=== PATIENT | male | born 1950 | race Caucasian/White ===

== ENCOUNTER → 2016-11-24 | Outpatient (CLI) | payer BC ==
[~2016-11-24] MED LIST: MULT-974 PO; SIMV20TA3 PO
== END ==
LOC: PREOP 05:38
PROVIDERS: ATTEND Surgery
DX: Z01.818 Encounter for other preprocedural examination (principal); Z86.010 Personal history of colon polyps

== ENCOUNTER 2016-11-29 06:31 | Day surgery (SDC) | payer BC ==
[~2016-11-29] VITALS: Ht 170.2 cm; Wt 77.1 kg
[2016-11-29] MEDS ORDERED: NS IV 1000 ML 1,000 ML IV STA (06:54)
[2016-11-29] MEDS ORDERED: NS IV 1000 ML 1,000 ML ONE (07:01)
[2016-11-29 07:11] VITALS: BP 129/84
[2016-11-29] MEDS ORDERED: proPOfol 200 MG/20 ML (DIPRIVAN) VIAL IV ONE (07:11)
[2016-11-29] MEDS ORDERED: MIDAZOLAM 2 MG/2 ML (VERSED) VIAL ONE (07:12)
[2016-11-29] MEDS ORDERED: MULT-974 PO (07:21)
[2016-11-29] MEDS ORDERED: SIMV20TA3 PO (07:21)
--- NOTE | 2016-11-29 08:51 | Progress Note-Post Operative ---
Post-Operative Progess Note Surgeon (s)/Line Runner (s) Surgeon JESSI HAGEN DO Line Runner: 0 Pre-Operative Diagnosis history polyps, family history colon cancer Post-Operative Diagnosis colon polyps Post-Op Procedure Note Date of Procedure: Nov 29, 2016 Name of Procedure Performed: colonoscopy c hot bx polypectomy x 3 Description of the Procedure: see note Findings of the Procedure see note Anesthesia Type per mda Estimated blood loss (mL): none Specimen(s) collected/removed ascending colon polyp x 2, descending colon polyp x 1 JESSI HAGEN DO Nov 29, 2016 08:51
[2016-11-29 08:55] VITALS: BP 117/73
--- NOTE | 2016-11-29 09:14 | Discharge Inst-Simple/Standard ---
Discharge Inst-Standard Patient Instructions/Follow Up Plan of Care/Instructions/FU: Follow up with Dr. Richardson in 2 weeks high fiber diet Activity as Tolerated: Yes Discharge Diet: Other Diet (high fiber diet) ASHLEY REINA APRN Nov 29, 2016 09:14
[2016-11-29 09:25] VITALS: BP 117/80
[2016-11-29 09:47] VITALS: BP 117/80
--- NOTE | 2016-11-29 10:12 | OPERATIVE REPORT ---
PROCEDURE PHYSICIAN: JESSI RICHARDSON DATE OF PROCEDURE: 11/29/2016 PREOPERATIVE DIAGNOSES: 1. History of colon polyps. 2. Family history of colon cancer. POSTOPERATIVE DIAGNOSIS: Colon polyps. PROCEDURE: Colonoscopy with hot list polypectomy x3. SURGEON: Dr. Richardson. ANESTHESIA: Per MDA. ESTIMATED BLOOD LOSS: None. COMPLICATIONS: None. INDICATIONS: The patient is 56-year-old male with history of colon polyps. He understands the risks and benefits of the procedure and wished to proceed with the procedure. Consent was signed on the chart. PROCEDURE: The patient was taken the endoscopy suite, placed left lateral recumbent position. Timeout was performed. Digital rectal exam was performed. There were no palpable polyps, masses, or ulcerations. The scope was inserted in the rectum, advanced all of the way to the cecum with minimal difficulty. Prep was adequate. The scope was then slowly retracted. There were no polyps, masses, or ulcerations within the cecum. Within the ascending colon, there were 2 small polyps which hot biopsy polypectomy was performed. The scope was continued to be slowly retracted back. There were no polyps, masses, or ulcerations within the transverse colon. Within the descending colon, a small polyp was present which hot biopsy polypectomy was performed. The scope was continued to be slowly retracted back to the sigmoid colon, which had a small amount of diverticulosis. The scope was continued to be retracted back to the rectum where it was also retroflexed noting no other pathology. The scope was returned to its normal position and slowly withdrawn until completely removed noting no other pathology. RECOMMENDATIONS: The patient will need a repeat colonoscopy in 3 years to reevaluate for colon polyps. Would recommend high-fiber diet. If he has any problems prior to that, he should be reevaluated at that time. Job ID: [id number] Dictated Date: 11/29/2016 08:53:04 Supervisor Cloth Winding Date: 11/29/2016 10:07:53 / tbk
== END 2016-11-29 09:47 | disposition home or self-care (01) ==
LOC: ENDO 06:31
PROVIDERS: ATTEND Surgery
DX: Z12.11 Encounter for screening for malignant neoplasm of colon (principal); D12.2 Benign neoplasm of ascending colon; D12.4 Benign neoplasm of descending colon; K63.5 Polyp of colon; Z80.0 Family history of malignant neoplasm of digestive organs
CPT/HCPCS: 88305

== ENCOUNTER → 2017-09-19 | Outpatient (CLI) | payer MEDICARE, OTHER ==
--- NOTE | 2017-09-19 09:23 | Diagnostic Imaging Report ---
PROCEDURE: CT sinuses without contrast TECHNIQUE: Multiple contiguous axial images were obtained through the sinuses without the use of intravenous contrast. Coronal and sagittal reformations were then performed. INDICATION: Chronic sinusitis. COMPARISON: None. FINDINGS: Moderate to advanced mucosal thickening throughout the paranasal sinuses, greatest in the left maxillary sinus. The right maxillary sinus is relatively spared. Postoperative findings of ethmoidectomies and right middle turbinectomy. No large ben bullosa. No large periapical lucencies about the maxillary dentition. The mastoids and middle ears are clear. Normal alignment of the temporomandibular joints. IMPRESSION: Advanced mucosal thickening throughout the paranasal sinuses greatest in the left maxillary sinus. Dictated by: Dictated on workstation # [id number]
== END ==
LOC: RAD 08:38
PROVIDERS: ATTEND Internal Medicine
DX: J32.0 Chronic maxillary sinusitis (principal)
CPT/HCPCS: 70486

== ENCOUNTER → 2018-05-08 | Outpatient (CLI) | payer MEDICARE, OTHER ==
[~2018-05-08] MED LIST changes: +IOHEXOL 350 MG/ML 100 ML (OMNIPAQUE 350) VIAL IV ONE; +NS 250 ML (IVPB) BAG IV ONE
[2018-05-08 08:39] LABS: BASOPHILS % (AUTO) 1 % (0-10); EOSINOPHILS # (AUTO) 0.2 10^3/uL (0.0-0.3); EOSINOPHILS % (AUTO) 4 % (0-10); HEMATOCRIT 41 % (40-54); LYMPHOCYTES # (AUTO) 0.9 X 10^3 (1.0-4.0); LYMPHOCYTES % (AUTO) 19 % (12-44); MEAN CORPUSCULAR HEMOGLOBIN 29 PG (25-34); MEAN CORPUSCULAR HGB CONC 34 G/DL (32-36); MEAN CORPUSCULAR VOLUME 85 FL (80-99); MEAN PLATELET VOLUME 10.4 FL (7.4-10.4); MONOCYTES # (AUTO) 0.4 X 10^3 (0.0-1.0); MONOCYTES % (AUTO) 9 % (0-12); NEUTROPHILS # (AUTO) 3.2 X 10^3 (1.8-7.8); NEUTROPHILS % (AUTO) 67 % (42-75); PLATELET COUNT 168 10^3/uL (130-400); RED BLOOD COUNT 4.81 10^6/uL (4.35-5.85); RED CELL DISTRIBUTION WIDTH 13.9 % (10.0-14.5); WHITE BLOOD COUNT 4.7 10^3/uL (4.3-11.0)
[2018-05-08 08:46] LABS: BILIRUBIN,URINE NEGATIVE (NEGATIVE); CLARITY,URINE CLEAR; COLOR,URINE YELLOW; GLUCOSE, URINE (UA) NEGATIVE (NEGATIVE); KETONES,URINE NEGATIVE (NEGATIVE); LEUKOCYTE ESTERASE ,URINE NEGATIVE (NEGATIVE); NITRITE,URINE NEGATIVE (NEGATIVE); PH,URINE 7 (5-9); PROTEIN,URINE 1+ (NEGATIVE); UROBILINOGEN,URINE NORMAL (NORMAL)
[2018-05-08 08:54] LABS: BACTERIA,URINE FEW /HPF; SQUAMOUS EPITHELIAL CELL,UR RARE /HPF; WBC,URINE RARE /HPF
[2018-05-08 09:00] LABS: ALANINE AMINOTRANSFERASE 24 U/L (0-55); ALBUMIN 4.1 GM/DL (3.2-4.5); ALKALINE PHOSPHATASE 95 U/L (40-136); AMYLASE 64 U/L (25-125); BILIRUBIN,TOTAL 0.8 MG/DL (0.1-1.0); BUN/CREATININE RATIO 13; CALCIUM 9.1 MG/DL (8.5-10.1); CARBON DIOXIDE 23 MMOL/L (21-32); CHLORIDE 108 MMOL/L (98-107); CREATININE SERUM 0.93 MG/DL (0.60-1.30); GFR ESTIMATED > 60; GLUCOSE 96 MG/DL (70-105); LIPASE 30 U/L (8-78); POTASSIUM 4.2 MMOL/L (3.6-5.0); SODIUM 140 MMOL/L (135-145); TOTAL PROTEIN 6.6 GM/DL (6.4-8.2)
[2018-05-08 09:27] LABS: ERYTHROCYTE SEDIMENTATION RATE 7 MM/HR (0-30)
--- NOTE | 2018-05-08 10:02 | Diagnostic Imaging Report ---
PROCEDURE: CT abdomen and pelvis with contrast. TECHNIQUE: Multiple contiguous axial images were obtained through the abdomen and pelvis after administration of intravenous contrast. INDICATION: Abdominal pain, nausea, vomiting, bloating, difficulty swallowing. FINDINGS: There is a small retrocardiac hiatal hernia. Lung bases were clear. The liver, gallbladder, bile ducts, spleen, adrenals and pancreas were unremarkable. The unobstructed kidneys appeared within normal limits. There is no bowel obstruction. Noninflamed diverticula changes to the sigmoid colon without evidence for diverticulitis. Aortoiliac atherosclerotic disease without aneurysm dissection or substantial stenosis. There is no abdominal pelvic mesenteric or retroperitoneal adenopathy. There is no ascites, abscess, hematoma or fluid collection. There was no focal inflammatory process. IMPRESSION: No obstructive features, inflammatory process, mass or acute appearing abnormalities. Sigmoid diverticulosis and a small hiatal hernia with nonaneurysmal atherosclerosis noted. Dictated by: Dictated on workstation # [id number]
== END ==
LOC: RAD 08:22
PROVIDERS: ATTEND Internal Medicine
DX: K57.30 Diverticulosis of large intestine without perforation or abscess without bleeding (principal); K44.9 Diaphragmatic hernia without obstruction or gangrene; I70.0 Atherosclerosis of aorta; E11.65 Type 2 diabetes mellitus with hyperglycemia
CPT/HCPCS: 36415; 74177; 80053; 81000; 82150; 83690; 85025; 85652

== ENCOUNTER 2018-06-26 06:35 | Outpatient (CLI) | payer MEDICARE, OTHER ==
[~2018-06-26] VITALS: Ht 170.2 cm; Wt 77.1 kg
[~2018-06-26 06:35] MED LIST changes: -IOHEXOL 350 MG/ML 100 ML (OMNIPAQUE 350) VIAL IV ONE; -NS 250 ML (IVPB) BAG IV ONE
[2018-06-26] MEDS ORDERED: ALLO100T PO (13:49)
== END 2018-06-26 13:59 | disposition home or self-care (01) ==
LOC: PREOP 06:35
PROVIDERS: ATTEND Surgery
DX: Z01.818 Encounter for other preprocedural examination (principal)

== ENCOUNTER 2018-07-03 07:52 | Day surgery (SDC) | payer MEDICARE, OTHER ==
[~2018-07-03] VITALS: Ht 170.2 cm; Wt 77.1 kg
[~2018-07-03 07:52] MED LIST changes: +ALLO100T PO
[2018-07-03] MEDS ORDERED: LACTATED RINGERS 1,000 ML IV ONE (07:55)
[2018-07-03] MEDS ORDERED: LACTATED RINGERS 1,000 ML IV STA (08:01)
--- OUTSIDE RECORDS SUMMARY | 2018-07-03 08:09 | XMS REPORT | Continuity of Care Document ---
Author Author [facility] [employer]. Organization [facility]. Address Unknown Phone Unavailable Allergies Active Description Code Type Severity Reaction Onset Reported/Identified Relationship to Patient Clinical Status Yes PCN PCN Unknown N/ A 11/29/2016 Yes SULFA SULFA Unknown N/A 11/29/2016 Medications There is no data. Problems Date Dx Coded Attending Type Code Diagnosis Diagnosed By 06/04/2014 RADHA ARMENDARIZ APRN Ot 327.23 OBSTRUCTIVE SLEEP APNEA (ADULT) (PEDIATR 11/29/2016 JESSI HAGEN DO Ot D12.2 BENIGN NEOPLASM OF ASCENDING COLON 11/29/2016 JESSI HAGEN DO Ot D12.4 BENIGN NEOPLASM OF DESCENDING COLON 11/29/2016 JESSI HAGEN DO Ot K63.5 POLYP OF COLON 11/29/2016 JESSI HAGEN DO Ot Z12.11 ENCOUNTER FOR SCREENING FOR MALIGNANT NE 11/29/2016 JESSI HAGEN DO Ot Z80.0 FAMILY HISTORY OF MALIGNANT NEOPLASM OF 12/09/2016 JESSI HAGEN DO Ot D12.2 BENIGN NEOPLASM OF ASCENDING COLON 12/09/2016 JESSI HAGEN DO Ot D12.4 BENIGN NEOPLASM OF DESCENDING COLON 12/09/2016 JESSI HAGEN DO Ot K63.5 POLYP OF COLON 12/09/2016 JESSI HAGEN DO Ot Z12.11 ENCOUNTER FOR SCREENING FOR MALIGNANT NE 12/09/2016 JESSI HAGEN DO Ot Z80.0 FAMILY HISTORY OF MALIGNANT NEOPLASM OF 09/20/2017 CARIN BURNETT DO Ot J32.0 CHRONIC MAXILLARY SINUSITIS 10/16/2017 CARIN BURNETT DO Ot J32.0 CHRONIC MAXILLARY SINUSITIS 05/08/2018 JESSI HAGEN DO Ot Z01.818 ENCOUNTER FOR OTHER PREPROCEDURAL EXAMIN 05/08/2018 JESSI HAGEN DO Ot Z86.010 PERSONAL HISTORY OF COLONIC POLYPS 05/08/2018 CARIN BURNETT DO Ot J32.0 CHRONIC MAXILLARY SINUSITIS 05/09/2018 BURNETT DO, CARIN Ot E11.65 TYPE 2 DIABETES MELLITUS WITH HYPERGLYCE 05/09/2018 BURNETT DO, CARIN Ot I70.0 ATHEROSCLEROSIS OF AORTA 05/09/2018 BURNETT DO, CARIN Ot K44.9 DIAPHRAGMATIC HERNIA WITHOUT OBSTRUCTION 05/09/2018 BURNETT DO, CARIN Ot K57.30 DVRTCLOS OF LG INT W/O PERFORATION OR AB 05/29/2018 BURNETTCARIN VENCES DO Ot E11.65 TYPE 2 DIABETES MELLITUS WITH HYPERGLYCE 05/29/2018 BURNETT DO, CARIN Ot I70.0 ATHEROSCLEROSIS OF AORTA 05/29/2018 BURNETT DO, CARIN Ot K44.9 DIAPHRAGMATIC HERNIA WITHOUT OBSTRUCTION 05/29/2018 BURNETT DO, CARIN Ot K57.30 DVRTCLOS OF LG INT W/O PERFORATION OR AB 06/26/2018 JESSI HAGEN DO Ot Z01.818 ENCOUNTER FOR OTHER PREPROCEDURAL EXAMIN 06/28/2018 JESSI HAGEN DO Ot Z01.818 ENCOUNTER FOR OTHER PREPROCEDURAL EXAMIN Procedures There is no data. Results Test Result Range Complete blood count (CBC) with automated white blood cell (WBC) differential - 05/08/18 08:35 Blood leukocytes automated count (number/volume) 4.7 10*3/uL 4.3-11.0 Blood erythrocytes automated count (number/volume) 4.81 10*6/uL 4.35-5.85 Venous blood hemoglobin measurement (mass/volume) 14.0 g/dL 13.3-17.7 Blood hematocrit (volume fraction) 41 % 40-54 Automated erythrocyte mean corpuscular volume 85 [foz_us] 80-99 Automated erythrocyte mean corpuscular hemoglobin (mass per erythrocyte) 29 pg 25-34 Automated erythrocyte mean corpuscular hemoglobin concentration measurement ( mass/volume) 34 g/dL 32-36 Automated erythrocyte distribution width ratio 13.9 % 10.0-14.5 Automated blood platelet count (count/volume) 168 10*3/uL 130-400 Automated blood platelet mean volume measurement 10.4 [foz_us] 7.4-10.4 Automated blood neutrophils/100 leukocytes 67 % 42-75 Automated blood lymphocytes/100 leukocytes 19 % 12-44 Blood monocytes/100 leukocytes 9 % 0-12 Automated blood eosinophils/100 leukocytes 4 % 0-10 Automated blood basophils/100 leukocytes 1 % 0-10 Blood neutrophils automated count (number/volume) 3.2 10*3 1.8-7.8 Blood lymphocytes automated count (number/volume) 0.9 10*3 1.0-4.0 Blood monocytes automated count (number/volume) 0.4 10*3 0.0-1.0 Automated eosinophil count 0.2 10*3/uL 0.0-0.3 Automated blood basophil count (count/volume) 0.0 10*3/uL 0.0-0.1 Complete urinalysis with reflex to culture - 05/08/18 08:35 Urine color determination YELLOW NRG Urine clarity determination CLEAR NRG Urine pH measurement by test strip 7 5-9 Specific gravity of urine by test strip 1.010 1.016- 1.022 Urine protein assay by test strip, semi-quantitative 1+ NEGATIVE Urine glucose detection by automated test strip NEGATIVE NEGATIVE Erythrocytes detection in urine sediment by light microscopy NEGATIVE NEGATIVE Urine ketones detection by automated test strip NEGATIVE NEGATIVE Urine nitrite detection by test strip NEGATIVE NEGATIVE Urine total bilirubin detection by test strip NEGATIVE NEGATIVE Urine urobilinogen measurement by automated test strip (mass/volume) NORMAL NORMAL Urine leukocyte esterase detection by dipstick NEGATIVE NEGATIVE Automated urine sediment erythrocyte count by microscopy (number/high power field) NONE NRG Automated urine sediment leukocyte count by microscopy (number/high power field ) RARE NRG Bacteria detection in urine sediment by light microscopy FEW NRG Squamous epithelial cells detection in urine sediment by light microscopy RARE NRG Crystals detection in urine sediment by light microscopy NONE NRG Casts detection in urine sediment by light microscopy NONE NRG Mucus detection in urine sediment by light microscopy SMALL NRG Complete urinalysis with reflex to culture NO NRG Comprehensive metabolic panel - 05/08/18 08:35 Serum or plasma sodium measurement (moles/volume) 140 mmol/L 135-145 Serum or plasma potassium measurement (moles/volume) 4.2 mmol/L 3.6-5.0 Serum or plasma chloride measurement (moles/volume) 108 mmol/L 98-107 Carbon dioxide 23 mmol/L 21-32 Serum or plasma anion gap determination (moles/volume) 9 mmol/L 5-14 Serum or plasma urea nitrogen measurement (mass/volume) 12 mg/dL 7-18 Serum or plasma creatinine measurement (mass/volume) 0.93 mg/dL 0.60-1.30 Serum or plasma urea nitrogen/creatinine mass ratio 13 NRG Serum or plasma creatinine measurement with calculation of estimated glomerular filtration rate > NRG Serum or plasma glucose measurement (mass/volume) 96 mg/dL 70-105 Serum or plasma calcium measurement (mass/volume) 9.1 mg/dL 8.5-10.1 Serum or plasma total bilirubin measurement (mass/volume) 0.8 mg/dL 0.1-1.0 Serum or plasma alkaline phosphatase measurement (enzymatic activity/volume) 95 U/L 40-136 Serum or plasma aspartate aminotransferase measurement (enzymatic activity/ volume) 23 U/L 5-34 Serum or plasma alanine aminotransferase measurement (enzymatic activity/volume ) 24 U/L 0-55 Serum or plasma protein measurement (mass/volume) 6.6 g/dL 6.4-8.2 Serum or plasma albumin measurement (mass/volume) 4.1 g/dL 3.2-4.5 CALCIUM CORRECTED 9.0 mg/dL 8.5-10.1 Serum or plasma amylase measurement (enzymatic activity/volume) - 05/08/18 08: 35 Serum or plasma amylase measurement (enzymatic activity/volume) 64 U /L 25-125 Lipase - 05/08/18 08:35 Lipase 30 U/L 8-78 Erythrocyte sedimentation rate by westergren method - 05/08/18 08:35 Erythrocyte sedimentation rate by westergren method 7 mm 0-30 Encounters ACCT No. Visit Date/Time Discharge Status Pt. Type Provider Facility Loc./Unit Complaint [id number] 05/17/2013 12:05:00 05/17/2013 13:00:00 DIS Emergency [id number] 06/26/2018 06:35:00 06/26/2018 13:59:00 DIS Outpatient JESSI HAGEN DO [facility] PREOP EGD [id number] 05/08/2018 08:22:00 05/08/2018 23:59:59 CLS Outpatient CARIN BURNETT DO [facility] RAD UNSPECIFIED ABD PAIN R10.9 [id number] 09/19/2017 08:38:00 09/19/2017 23:59:59 CLS Outpatient CARIN BURNETT DO [facility] RAD CHRONIC MAXILLARY SINUSITIS [id number] 11/29/2016 06:31:00 11/29/2016 09:47:00 DIS Outpatient JESSI HAGEN DO [facility] ENDO HISTORY OF POLYPS [id number] 11/24/2016 05:38:00 11/24/2016 23:59:59 CLS Outpatient JESSI HAGEN DO [facility] PREOP HISTORY OF POLYPS [id number] 06/03/2014 20:50:00 06/04/2014 06:00:00 DIS Outpatient RADHA ARMENDARIZ APRN [facility] SLEEP SNORING,DAYTIME SLEEPINESS [id number] 07/03/2018 07:52:00 ACT Outpatient JESSI HAGEN DO [facility] ENDO DYSPHAGIA/REFLUX
[2018-07-03 08:15] VITALS: BP 133/77
[2018-07-03] MEDS ORDERED: HURRICAINE EXT TUBE (BENZOCAINE) XX PRN (08:15)
[2018-07-03] MEDS ORDERED: MIDAZOLAM 2 MG/2 ML (VERSED) VIAL ONE (09:18)
[2018-07-03] MEDS ORDERED: PROPOFOL INJECTION 50 ML IV ONE (09:18)
--- NOTE | 2018-07-03 09:37 | Progress Note-Pre Operative ---
Pre-Operative Progress Note H&P Reviewed The H&P was reviewed, patient examined and no changes noted. Date Seen by Provider: Jul 03, 2018 Time Seen by Provider: 09:37 Date H&P Reviewed: Jul 03, 2018 Time H&P Reviewed: 09:37 Pre-Operative Diagnosis: dysphagia, gerd JESSI HAGEN DO Jul 03, 2018 09:37
[2018-07-03] MEDS ORDERED: PANT40TA2 PO (09:59)
[2018-07-03] MEDS ORDERED: SUCR1TAB36 PO (09:59)
--- NOTE | 2018-07-03 10:00 | Discharge Inst-Simple/Standard ---
Discharge Inst-Standard Discharge Medications New, Converted or Re-Newed RX: Transmitted to Pharmacy Patient Instructions/Follow Up Plan of Care/Instructions/FU: 2-3 weeks Debra Activity as Tolerated: Yes Discharge Diet: Regular Diet JESSI HAGEN DO Jul 03, 2018 10:00
--- NOTE | 2018-07-03 10:02 | Progress Note-Post Operative ---
Post-Operative Progess Note Surgeon (s)/Voip Technician (s) Surgeon JESSI HAGEN DO Voip Technician: na Pre-Operative Diagnosis dysphagia, gerd Post-Operative Diagnosis small hiatal hernia gastric polyp duodenitis Procedure & Operative Findings Date of Procedure 07/03/18 Procedure Performed/Findings egd c biopsies and hot bx polypectomy Anesthesia Type per director of global marketing Estimated Blood Loss Estimated blood loss (mL): scant Specimens/Packing Specimens Removed duodenum, antrum, gastric polyp, ge junction JESSI HAGEN DO Jul 03, 2018 10:02
[2018-07-03 10:20] VITALS: BP 138/81
[2018-07-03] MEDS ORDERED: HURRICAINE EXT TUBE (BENZOCAINE) ONE (10:32)
[2018-07-03 10:50] VITALS: BP 129/83
[2018-07-03 10:55] VITALS: BP 129/83
--- NOTE | 2018-07-03 12:14 | Anesthesia-General Post-Op ---
MAC Patient Condition Mental Status/LOC: Same as Preop Cardiovascular: Satisfactory Nausea/Vomiting: Absent Respiratory: Satisfactory Pain: Controlled Complications: Absent Post Op Complications Complications None Follow Up Care/Instructions Patient Instructions None needed. Anesthesiology Discharge Order Discharge Order Patient is doing well, no complaints, stable vital signs, no apparent adverse anesthesia problems. No complications reported per nursing. ANN LARA CRNA Jul 03, 2018 12:14
--- NOTE | 2018-07-03 17:26 | OPERATIVE REPORT ---
DATE OF SERVICE: 07/03/2018 PREOPERATIVE DIAGNOSES: Dysphagia and gastroesophageal reflux disease. POSTOPERATIVE DIAGNOSES: Small hiatal hernia, gastric polyp, duodenitis, and reflux esophagitis. PROCEDURE PERFORMED: Esophagogastroduodenoscopy with biopsies and hot biopsy polypectomy. ANESTHESIA: Per CIGAR MAKER. SURGEON: Jessi Richardson DO. ESTIMATED BLOOD LOSS: Scant. COMPLICATIONS: None. INDICATIONS: The patient is a 68-year-old male with dysphagia and reflux symptoms. He understands risks and benefits of procedure and wished to proceed with procedure. Consent was signed in the chart. DESCRIPTION OF PROCEDURE: The patient was taken to the endoscopy suite, placed in left lateral recumbent position. Timeout was performed. Scope was inserted into mouth, down the esophagus, stomach and into the duodenum without difficulty. There were no polyps, mass or ulcerations within the second portion of the duodenum. The first portion of the duodenum has some erythematous changes consistent with duodenitis. A biopsy was obtained. Scope was slowly retracted back into the stomach where it was further insufflated. There were just slight erythematous changes. No polyps, masses or ulcerations within the antrum. Biopsy of the antrum was obtained. Scope was retroflexed and there was a smaller gastric polyp present, which hot biopsy polypectomy was performed. This was in the cardia portion. Scope was returned to its normal position noting no other pathology. There was a small hiatal hernia noted as well. Scope was returned to its normal position and slowly withdrawn to the distal esophagus. At the GE junction, there are some erythematous changes consistent with reflux esophagitis. Biopsies were obtained. Scope was then slowly retracted back until completely removed. The patient tolerated the procedure well without any complications and taken to recovery room in stable condition. RECOMMENDATIONS: The patient is to follow up in the office in two to three weeks to discuss pathology results. We will also start him on Protonix and Carafate to see how he is doing with that and how his symptoms are doing. Job ID: [id number] DocumentID: [id number] Dictated Date: 07/03/2018 10:04:57 Real Estate Paralegal Date: 07/03/2018 17:25:34 Dictated By: JESSI RICHARDSON DO
== END 2018-07-03 10:55 | disposition home or self-care (01) ==
LOC: ENDO 07:52
PROVIDERS: ATTEND Surgery
DX: K21.0 Gastro-esophageal reflux disease with esophagitis (principal); K44.9 Diaphragmatic hernia without obstruction or gangrene; K31.7 Polyp of stomach and duodenum; G47.33 Obstructive sleep apnea (adult) (pediatric); E78.5 Hyperlipidemia, unspecified; F17.200 Nicotine dependence, unspecified, uncomplicated; Z79.899 Other long term (current) drug therapy

== ENCOUNTER 2019-09-04 09:48 | Outpatient (CLI) | payer MEDICARE, OTHER ==
[~2019-09-04] VITALS: Ht 172 cm; Wt 83.1 kg
[~2019-09-04 09:48] MED LIST changes: +PANT40TA2 PO; +SIMV20TA26 PO; -SIMV20TA3 PO; +SUCR1TAB36 PO
[2019-09-04] MEDS ORDERED: IRON DEXTRAN 25 MG/NS 6.25 ML TOTAL VOLUME IV ONE ×3 (10:00)
[2019-09-04] MEDS ORDERED: IRON DEXTRAN 1,000 MG/NS 250 ML IVPB IV ONE ×2 (10:00)
[2019-09-04 10:18] VITALS: BP 141/85
== END 2019-09-04 12:03 | disposition home or self-care (01) ==
LOC: SDC 09:48
PROVIDERS: ATTEND Internal Medicine
DX: E61.1 Iron deficiency (principal)
CPT/HCPCS: 96365

== ENCOUNTER 2020-02-06 05:37 | Outpatient (RCR) | payer MEDICARE, OTHER ==
[~2020-02-06] VITALS: Ht 172 cm; Wt 77.2 kg
== END 2020-02-06 11:36 | disposition home or self-care (01) ==
LOC: PREOP 05:37
PROVIDERS: ATTEND Surgery
DX: Z01.812 Encounter for preprocedural laboratory examination (principal); Z20.828 Contact with and (suspected) exposure to other viral communicable diseases; Z86.010 Personal history of colon polyps
CPT/HCPCS: 87635

== ENCOUNTER 2020-02-11 08:49 | Day surgery (SDC) | payer MEDICARE, OTHER ==
[2020-02-11] VITALS (8 sets, daily range): BP systolic 135–147; BP diastolic 51–90
[~2020-02-11] VITALS: Ht 172 cm; Wt 77.2 kg
[2020-02-11] MEDS ORDERED: LACTATED RINGERS 1,000 ML IV ONE (08:55)
[2020-02-11] MEDS ORDERED: LACTATED RINGERS 1,000 ML IV PRN (09:00)
--- OUTSIDE RECORDS SUMMARY | 2020-02-11 09:33 | XMS REPORT ---
Author Author [employer] [facility] [employer] [facility] [employer] Address [address] [address] Care Team Providers Care Scarrer Name Role Phone Jazzmine Boone Unavailable NO, LOCAL PHYSICIAN Unavailable Unavailable CARIN BURNETT Unavailable CARIN BURNETT DO S Unavailable Unavailable DO CARIN BURNETT PCP DO CARIN BURNETT PCP Unavailable Unavailable Unavailable Unavailable Allergies The data below is from unstructured sources Allergy Name Reaction Description Start Date Severity Status Provider Allergies Unknown Medications Current Medications Medication Ingredient Drug Dose Dates Status Sig Sig Care Class(es) (Normalized) (Original) Provid er allopurinol Allopurinol Xanthine 100 mg Active no Allopurino l no 100 mg oral Oxidase information Active 100 name tablet (4 Inhibitor ORAL Daily sources.) Completed/Discontinued Medications Medication Ingredient Drug Dose Dates Status Sig Sig Care Class(es) (Normalized) (Original) Provid er no Multivitami no Complete take 1 Multivitamin (n o information n information d tablet by (Multi-Vit am phone) (2 (Multi-Aline mouth once in Daily) 1 sources.) min Daily) daily, then Each Tablet 1 Each take 1 1 Each ORAL Tablet tablet by Daily mouth pantoprazol pantoprazol Proton Pump 40 mg 07-03-20 Complete take 1 Pantoprazole Jessi e 40 mg e Inhibitor 18 d tablet by Sodium D delayed mouth once (Protonix) Hagen release daily 40 Mg (no oral tablet Tablet.dr 40 phone) (3 Mg ORAL sources.) Daily 30 Tab 07/03/18 07-03-2018 Active no Pantopra no name inform zole ation Sodium Active 40 ORAL Daily July 03, 2018 9:59am sucralfate Sucralfate Aluminum 1000 07-03-20 Complete take 1 S ucralfate Jessi 1000 mg Complex mg 18 d tablet by (Carafate) 1 D oral tablet mouth at Gm Tablet 1 Hagen (3 bedtime Gm ORAL (no sources.) Before Meals phone) And At Bedtime 120 Tab 07/03/18 07-03-2018 Completed no Sucralfa no name - inform te 02-04-2020 ation Disconti nued 1 ORAL Before Meals And At Bedtime 120 July 03, 2018 9:59am February 04, 2020 Problems Problem Normalized Date Last Normalized Normalized Provider Fa cility Classification Problem(s) Recorded Problem Problem Sta tus Duration 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 (2 sources.) Other and Benign Episodic Active JESSI HAGEN , Not Avai lable unspecified neoplasm of DO (57639) benign ascending neoplasm (3 colon sources.) Other and Benign Episodic Active JESSI HAGEN , Not Avai lable unspecified neoplasm of DO (25599) benign descending neoplasm (3 colon sources.) Other upper Chronic Chronic Active no name no informat ion respiratory maxillary infections (3 sinusitis sources.) Abdominal Diaphragmatic Episodic Active JESSI HAGEN , Not Available hernia (6 hernia without DO (01732) sources.) obstruction or gangrene Diverticulosis Diverticulosis Chronic Active no name no information and of large diverticulitis intestine (2 sources.) without perforation or abscess without bleeding Other Dysphagia Episodic Active CARIN BURNETT [facility] Translations: [address] [facility] al disorders [ Dysphagia] [place] (3 sources.) ([address]) Unclassified Encounter for Episodic Active JESSI HAGEN , Not Available (3 sources.) screening for DO (24693) malignant neoplasm of colon Unclassified Family history Episodic Active JESSI HAGEN , Not Available (3 sources.) of malignant DO (87540) neoplasm of digestive organs Esophageal Gastro-esophag Chronic Active JESSI XIAO , N ot Available disorders (4 eal reflux DO (73142) sources.) disease with esophagitis Nutritional Iron Episodic Active CARIN BURNETT , [facility] Vi a deficiencies deficiency DO Rosita (2 sources.) [facility] ([address]692) Substance-rela Nicotine Chronic Active JESSI HAGEN , Not Available petrona disorders dependence, DO (82637) (4 sources.) unspecified, uncomplicated Residual Obstructive Chronic Active JESSI HAGEN , Not A vailable codes; sleep apnea DO (21057) unclassified (adult) (4 sources.) (pediatric) Unclassified Obstructive Chronic Active no name no info rmation (2 sources.) sleep apnea (adult)(pediat talita) Other Other long Episodic Active JESSI HAGEN , Not Av ailable aftercare (4 term (current) DO (00403) sources.) drug therapy Other and Personal Episodic Active no name no informatio n unspecified history of benign colonic polyps neoplasm (2 sources.) Other and Polyp of colon Episodic Active JESSI HAGEN , No t Available unspecified DO (59278) benign neoplasm (3 sources.) Other and Polyp of Episodic Active JESSI HAGEN , Not Avai lable unspecified stomach and DO (47923) benign duodenum neoplasm (4 sources.) Esophageal Reflux Episodic Active CARIN LEX [facility] (1 [address] Hospital source.) [place] ([address]) Diabetes Type 2 Chronic Active no name no informatio n mellitus with diabetes complications mellitus with (2 sources.) hyperglycemia Procedures Procedure Normalized Procedure Procedure Result Performer Facility Date 07-03-2018 Administration of no information JESSI HAGEN Vi a [facility] anesthesia [place] ([address]) 07-03-2018 Esophagogastroduodenos no information JESSI TOVAR R Via [facility] copy [place] ([address]) Immunizations Normalized Immunization Date Notes Care Provider Facili ty Immunization vaccine no information CARIN BURNETT [address] [facility] Translations: [ [place] ([address]) vaccine] Results The data below is from unstructured sourcesNo Known Relevant Diagnostic Tests, Laboratory Data and/or Discharge Summary.No known relevant diagnostic tests, laboratory data and/or discharge summary.No known relevant diagnostic tests, laboratory data and/or discharge summary.No relevant diagnostic test, laboratory data and/or discharge summary information availab le.No relevant diagnostic test, laboratory data and/or discharge summary informa tion available.No relevant diagnostic test, laboratory data and/or discharge sum [place] information available.No relevant diagnostic test, laboratory data and/or d ischarge summary information available.No known relevant diagnostic tests and/or laboratory data.No known relevant diagnostic tests and/or laboratory data.No kn own relevant diagnostic tests and/or laboratory data.No known relevant diagnosti c tests and/or laboratory data. Vital Signs The data below is from unstructured sources Vital Reading Collection Date/Time Result Blood Pressure 05/17/13 11:57am 128/87 Ortho 05/17/13 11:57am S I Temperature 05/17/13 11:57am 98.7 Source 05/17/13 11:57am O Pulse 05/17/13 11:57am 6 4 SPO2 (%) 05/17/13 11:57am 96 Height(cm) 05/17/13 11:57am 170.2 Height(in) 05/17/13 11:57am 067 Weight(Kg) 05/17/13 11:57am 75.0 Weight(lbs) 05/17/13 11:57am 165.0 Vital Response Date/Time Height (Feet) 5 feet 12:19pm Height (Inches) 7.00 inches 06/26/2018 12:19pm Height (Calculated Centimeters) 170. 319527 cm 06/26/2018 12:19pm Weight (Pounds) 170 pounds 06/26/2018 12:19pm Weight (Ounces) 0.0 oz 1 08/26/2017 12:19pm Weight (Calculated Grams) 89317.70 gm 06/26/2018 12:19pm Weight (Calculated Kilograms) 77.110 704 kilograms 06/26/2018 12:19pm Calculated BMI 26.6 06/14 12:19pm Vital Response Date/Time Temperature (Fahrenheit) 97.0 degree s F (97.6 - 99.5) 07/03/2018 10:55am Temperature (Calculated Celsius) 36. 22855 degrees C (36.4 - 37.5) 07/03/2018 10:55am Temperature Source Temporal 07/03/2018 10:55am Pulse Rate (adult) 56 bpm (60 - 90) 07/03/2018 10:55am Respiratory Rate 16 bpm (12 - 24) 07/03/2018 10:55am O2 Sat by Pulse Oximetry 98 % (88 - 100) 07/03/2018 10:55am Blood Pressure 129/83 mm Hg 07/03/2018 10:55am Blood Pressure Mean 95 mm Hg (65 - 110) 07/03/2018 8:15am Pain Numeric Pain Scale 0-No Pain 07/03/2018 10:55am Pain Intensity 0 2017 10:50am Height (Feet) 5 feet 8:20am Height (Inches) 7.00 inches 07/03/2018 8:20am Height (Calculated Centimeters) 170. 033631 cm 07/03/2018 8:20am Weight (Pounds) 170 pounds 07/03/2018 8:20am Weight (Ounces) 0.0 oz 1 09/02/2017 8:20am Weight (Calculated Grams) 81235.70 gm 07/03/2018 8:20am Weight (Calculated Kilograms) 77.110 704 kilograms 07/03/2018 8:20am Calculated BMI 26.6 06/15 8:20am Vital Reading Result Col lection Date/Time Vital Reading Result Col lection Date/Time Interventions No Information Plan of Treatment Normalized Care Care Detail Care Activity Date Care Provider F acility Activity Coronavirus Ab Qn no information no information DO CARIN BURNETT [employer] ([place]) [id number] (Work Phone: [facility] ) ([address]) Patient referral no information no information DO CARIN BURNETT [facility] [address] [address] [facility] ([address]) Goals Patient Goal Desired Goal no information no information Social History Normalized Code Original Code Date Value no information no information 07-03-2018 No no information no information 07-03-2018 Cigarettes Sex Assigned At Sex Assigned At no information M pito Tobacco smoking status Tobacco smoking status no information Ex-smoker (finding) ALIS ALIS no information no information 02-04-2020 Occasionally Us es no information no information 02-04-2020 Former Smoker Functional Status The data below is from unstructured sourcesNo functional status results.No functional status information available.No functional status information available.No functional status information available.No functional status information available.No Functional Status information availableNo Functional Status information availableNo Functional Status information av ailableNo Functional Status information available Mental Status The data below is from unstructured sourcesNo Mental Status Information AvailableNo Mental Status Information AvailableNo Mental Status Information Available Encounters Encounter Normalized Encounter Encounter Diagnosis Care Provi ramón Organization Date Type 07-03-2018 Admission to day no information JESSI HAGEN Work no organization name surgery 02-06-2020 Discharged Recurring no information (no phone) [facility] (no phone) 02-06-2020 06-26-2018 Patient encounter no information JESSI HAGEN Wor k no organization name - 06-26-2018 JESSI HAGEN 05-08-2018 Patient encounter no information no name no or ganization name 09-19-2017 Patient encounter no information no name no or ganization name 11-29-2016 Patient encounter no information no name no or ganization name - 11-29-2016 11-24-2016 Patient encounter no information no name no or ganization name 06-03-2014 Patient encounter no information no name no or ganization name - 06-04-2014 09-04-2019 Patient encounter no information (no phone) Brendan ruiz [facility] (no phone) 09-04-2019 09-04-2019 Patient encounter no information CARIN Jaquelin BURNETT (no [facility] phone) [facility] 09-04-2019 (no phone) 07-03-2018 Patient encounter no information no name no or ganization name - procedure 07-03-2018 NEGATED no information Encounter for other no name no organization name preprocedural examination Medical Equipment The data below is from unstructured sourcesNo Medical Equipment Information availableNo Medical Equipment Information availableNo Medical Equipment Information available Payers Normalized Payer Value Unknown [id number]) Unknown [id number] ([id number]) Unknown no information ([id number]) Medicare [id number] ([id number]) Medicare no information ([id number]) Evaluation note Note Type Note Facility Evaluation No Assessments Information Available A scension note [facility] ([id number]) Discharge Instructions No hospital discharge instructions.No hospital discharge instruction information available.No hospital discharge instruction information available. Advance Directives Directive Response Recor ded Date/Time Advance Directives No 1:47pm Health Care Power of Firearms Assembly Supervisor No 06/26/18 1:47pm Organ Donor Yes 06/26/18 1:47pm Resuscitation Status Full Code 06/26/18 1:47pm Directive Response Recor ded Date/Time Advance Directives No 8:13am Health Care Power of Firearms Assembly Supervisor No 07/03/18 8:13am Organ Donor Yes 07/03/18 8:13am Resuscitation Status Full Code 07/03/18 8:13am Advance Directive Response Recorded Date/Time Advance Directives No No 2017 8:13am Health Care Power of Firearms Assembly Supervisor No July 03, 2018 8:13am Organ Donor Yes July 03, 2018 8:13am Advance Directive Response Recorded Date/Time Advance Directives Yes J 2019 10:29am Health Care Power of Firearms Assembly Supervisor Yes February 04, 2020 10:29am Organ Donor Yes January 10:29am Resuscitation Status Full Code February 04, 2020 10:29am Additional Source Comments This clinical document has been generated using [employer] software that has been certified by the Office of the National Coordinator for Health Information Technology (ONC 15.99.04.3023.Diam.31.00.0.769925) and the National Committee for Battalion Chief (NCQA, as an eMeasure certified technology). FOR RECORDS PERTAINING TO PATIENTS WHO ARE OR HAVE BEEN ENROLLED IN A CHEMICAL D EPENDENCY/SUBSTANCE ABUSE PROGRAM, SOME INFORMATION MAY BE OMITTED. This clinica l summary was aggregated from multiple sources. Caution should be exercised in using it in the provision of clinical care. This summary normalizes information from multiple sources, and as a consequence, information in this document may ma terially change the coding, format and clinical context of patient data. In kathy tion, data may be omitted in some cases. CLINICAL DECISIONS SHOULD BE BASED ON T HE PRIMARY CLINICAL RECORDS. [employer] [place] provides no warranty or guara ntee of the accuracy or completeness of information in this document.The followi ng information is based on time limited clinical information
--- OUTSIDE RECORDS SUMMARY | 2020-02-11 09:34 | XMS REPORT | Continuity of Care Document ---
Author Organization Unknown Address Unknown Phone Unavailable Allergies Active Description Code Type Severity Reaction Onset Reported/Identified Relationship to Patient Clinical Status Yes PCN PCN Unknown N/A 11/29/2016 Yes SULFA SULFA Unknown N/A 11/29/2016 Yes Penicillins [id number] Drug Aller gy Unknown N/A 07/03/2018 Yes Sulfa (Sulfonamide Antibiotics) [id number] 0491 Drug Allergy Unknown N/A 018 Yes Penicillins [id number] Drug Aller gy Unknown FROM CHILDHOOD 02/04/2020 Yes Sulfa (Sulfonamide Antibiotics) [id number] 0491 Drug Allergy Unknown FROM CHILDHOOD 02/04/2020 Medications There is no data. Problems Date Dx Coded Attending Type Code Diagnosis Diagnosed By 07/13/1135 JESSI HAGEN DO Ot Z01.812 ENCOUNTER FOR PREPROCEDURAL LABORATORY E 07/13/1135 JESSI HAGEN DO Ot Z20.828 CONTACT W AND EXPOSURE TO OTH VIRAL COMM 07/13/1135 JESSI HAGEN DO Ot Z86.010 PERSONAL HISTORY OF COLONIC POLYPS 06/04/2014 RADHA ARMEDNARIZ APRN Ot 327.23 OBSTRUCTIVE SLEEP APNEA (ADULT) (PEDIATR 11/29/2016 JESSI HAGEN DO Ot D12. 2 BENIGN NEOPLASM OF ASCENDING COLON 11/29/2016 JESSI HAGEN DO Ot D12. 4 BENIGN NEOPLASM OF DESCENDING COLON 11/29/2016 JESSI HAGEN DO Ot K63. 5 POLYP OF COLON 11/29/2016 JESSI HAGEN DO Ot Z12. 11 ENCOUNTER FOR SCREENING FOR MALIGNANT NE 11/29/2016 JESSI HAGEN DO Ot Z80. 0 FAMILY HISTORY OF MALIGNANT NEOPLASM OF 12/09/2016 JESSI HAGEN DO Ot D12. 2 BENIGN NEOPLASM OF ASCENDING COLON 12/09/2016 JESSI HAGEN DO Ot D12. 4 BENIGN NEOPLASM OF DESCENDING COLON 12/09/2016 JESSI HAGEN DO Ot K63. 5 POLYP OF COLON 12/09/2016 JESSI HAGEN DO Ot Z12. 11 ENCOUNTER FOR SCREENING FOR MALIGNANT NE 12/09/2016 JESSI HAGEN DO Ot Z80. 0 FAMILY HISTORY OF MALIGNANT NEOPLASM OF 09/20/2017 CARIN BURNETT DO Ot J32.0 CHRONIC MAXILLARY SINUSITIS 10/16/2017 CARIN BURNETT DO Ot J32.0 CHRONIC MAXILLARY SINUSITIS 05/08/2018 JESSI HAGEN DO Ot Z01.818 ENCOUNTER FOR OTHER PREPROCEDURAL EXAMIN 05/08/2018 JESSI HAGEN DO Ot Z86.010 PERSONAL HISTORY OF COLONIC POLYPS 05/08/2018 CARIN BURNETT DO Ot J32.0 CHRONIC MAXILLARY SINUSITIS 05/09/2018 CARIN BURNETT DO Ot E11.65 TYPE 2 DIABETES MELLITUS WITH HYPERGLYCE 05/09/2018 LEX COUCH CARIN Ot I70.0 ATHEROSCLEROSIS OF AORTA 05/09/2018 NI BURNETT DOI Ot K44.9 DIAPHRAGMATIC HERNIA WITHOUT OBSTRUCTION 05/09/2018 CARIN BURNETT DO Ot K57.30 DVRTCLOS OF LG INT W/O PERFORATION OR AB 05/29/2018 CARIN BURNETT DO Ot E11.65 TYPE 2 DIABETES MELLITUS WITH HYPERGLYCE 05/29/2018 CARIN BURNETT DO Ot I70.0 ATHEROSCLEROSIS OF AORTA 05/29/2018 CARIN BURNETT DO Ot K44.9 DIAPHRAGMATIC HERNIA WITHOUT OBSTRUCTION 05/29/2018 NI BURNETT DOI Ot K57.30 DVRTCLOS OF LG INT W/O PERFORATION OR AB 06/26/2018 JESSI HAGEN DO Ot Z01.818 ENCOUNTER FOR OTHER PREPROCEDURAL EXAMIN 06/28/2018 JESSI HAGEN DO Ot Z01.818 ENCOUNTER FOR OTHER PREPROCEDURAL EXAMIN 07/03/2018 JESSI HAGEN DO Ot E78. 5 HYPERLIPIDEMIA, UNSPECIFIED 07/03/2018 JESSI HAGEN DO Ot F17.200 NICOTINE DEPENDENCE, UNSPECIFIED, UNCOMP 07/03/2018 JESSI HAGEN DO Ot G47. 33 OBSTRUCTIVE SLEEP APNEA (ADULT) (PEDIATR 07/03/2018 JESSI HAGEN DO Ot K21. 0 GASTRO-ESOPHAGEAL REFLUX DISEASE WITH ES 07/03/2018 HAGEN DO, JESSI D Ot K31. 7 POLYP OF STOMACH AND DUODENUM 07/03/2018 HAGEN DO, JESSI D Ot K44. 9 DIAPHRAGMATIC HERNIA WITHOUT OBSTRUCTION 07/03/2018 HAGEN DO, JESSI D Ot Z79.899 OTHER TELEMETRY TECH (CURRENT) DRUG THERAPY 07/04/2018 HAGEN DO, JESSI D Ot E78. 5 HYPERLIPIDEMIA, UNSPECIFIED 07/04/2018 HAGEN DO, JESSI D Ot F17.200 NICOTINE DEPENDENCE, UNSPECIFIED, UNCOMP 07/04/2018 HAGEN DO, JESSI D Ot G47. 33 OBSTRUCTIVE SLEEP APNEA (ADULT) (PEDIATR 07/04/2018 HAGEN DO, JESSI D Ot K21. 0 GASTRO-ESOPHAGEAL REFLUX DISEASE WITH ES 07/04/2018 HAGEN DO, JESSI D Ot K31. 7 POLYP OF STOMACH AND DUODENUM 07/04/2018 HAGEN DO, JESSI D Ot K44. 9 DIAPHRAGMATIC HERNIA WITHOUT OBSTRUCTION 07/04/2018 HAGEN DO, JESSI D Ot Z79.899 OTHER USP (CURRENT) DRUG THERAPY 07/04/2018 HAGEN DO, JESSI D Ot E78. 5 HYPERLIPIDEMIA, UNSPECIFIED 07/04/2018 HAGEN DO, JESSI D Ot F17.200 NICOTINE DEPENDENCE, UNSPECIFIED, UNCOMP 07/04/2018 HAGEN DO, JESSI D Ot G47. 33 OBSTRUCTIVE SLEEP APNEA (ADULT) (PEDIATR 07/04/2018 HAGEN DO, JESSI D Ot K21. 0 GASTRO-ESOPHAGEAL REFLUX DISEASE WITH ES 07/04/2018 HAGEN DO, JESSI D Ot K31. 7 POLYP OF STOMACH AND DUODENUM 07/04/2018 HAGEN DO, JESSI D Ot K44. 9 DIAPHRAGMATIC HERNIA WITHOUT OBSTRUCTION 07/04/2018 HAGEN DO, JESSI D Ot Z79.899 OTHER TELEMETRY TECH (CURRENT) DRUG THERAPY 09/04/2019 BURNETT DO, CARIN Ot E61.1 IRON DEFICIENCY 09/06/2019 CARIN BURNETT DO Ot E61.1 IRON DEFICIENCY Procedures There is no data. Results Test Result Range Complete blood count (CBC) with automate d white blood cell (WBC) differential - 05/08/18 08:35 Blood leukocytes automated count (number/volume) 4.7 10*3/uL 4.3-11.0 Blood erythrocytes automated count (number/volume) 4.81 10*6/uL 4.35-5.85 Venous blood hemoglobin measurement (mass/volume) 14.0 g/dL 13.3-17.7 Blood hematocrit (volume fraction) 41 % 40-54 Automated erythrocyte mean corpuscular volume 85 [ foz_us] 80-99 Automated erythrocyte mean corpuscular h emoglobin (mass per erythrocyte) 29 pg 25-34 Automated erythrocyte mean corpuscular h emoglobin concentration measurement (mass/volume) 34 g/dL 32-36 Automated erythrocyte distribution width ratio 13. 9 % 10.0- 14.5 Automated blood platelet count (count/volume) 168 10*3/uL [...] 10*3 1.0-4.0 Blood monocytes automated count (number/volume) 0. 4 10*3 0.0-1.0 Automated eosinophil count 0.2 10*3/uL 0 .0-0.3 Automated blood basophil count (count/volume) 0.0 10*3/uL 0.0-0.1 Complete urinalysis with reflex to cultu re - 05/08/18 08:35 Urine color determination YELLOW NRG Urine clarity determination CLEAR NR G Urine pH measurement by test strip 7 5-9 Specific gravity of urine by test strip 1.010 1.016-1.022 Urine protein assay by test strip, semi-quantitative 1+ NEGATIVE Urine glucose detection by automated test strip NE GATIVE NEGATIVE Erythrocytes detection in urine sediment by light micr oscopy NEGATIVE NEGATIVE Urine ketones detection by automated test strip NE GATIVE NEGATIVE Urine nitrite detection by test strip NEGATIVE NEGATIVE Urine total bilirubin detection by test strip NEGA TIVE NEGATIVE Urine urobilinogen measurement by automated test strip (mass/volume) NORMAL NORMAL Urine leukocyte esterase detection by dipstick NEG ATIVE NEGATIVE Automated urine sediment erythrocyte cou nt by microscopy (number/high power field) NONE NRG Automated urine sediment leukocyte count by microscopy (number/high power field) RARE NRG Bacteria detection in urine sediment by light microsco py FEW NRG Squamous epithelial cells detection in u rine sediment by light microscopy RARE NRG Crystals detection in urine sediment by light microsco py NONE NRG Casts detection in urine sediment [...] 5-14 Serum or plasma urea nitrogen measurement (mass/volume ) 12 mg/dL 7-18 Serum or plasma creatinine measurement (mass/volume) 0.93 mg/dL 0.60-1.30 Serum or plasma urea nitrogen/creatinine mass ratio 13 NRG Serum or plasma creatinine measurement w ith calculation of estimated glomerular filtration rate > NRG Serum or plasma glucose measurement (mass/volume) 96 mg/dL 70-105 Serum or plasma calcium measurement (mass/volume) 9.1 mg/dL 8.5-10.1 Serum or plasma total bilirubin measurement (mass/volu me) 0.8 mg/dL 0.1-1.0 Serum or plasma alkaline phosphatase ema surement (enzymatic activity/volume) 95 U/L 40-136 Serum or plasma aspartate aminotransfera se measurement (enzymatic activity/volume) 23 U/L 5-34 Serum or plasma alanine aminotransferase measurement (enzymatic activity/volume) 24 U/L 0-55 Serum or plasma protein measurement (mass/volume) 6.6 g/dL 6.4-8.2 Serum or plasma albumin measurement (mass/volume) 4.1 g/dL 3.2-4.5 CALCIUM CORRECTED 9.0 mg/dL 8.5-10.1 Serum or plasma amylase measurement (enz ymatic activity/volume) - 05/08/18 08:35 Serum or plasma amylase measurement (enzymatic activit y/volume) 64 U/L 25-125 Lipase - 05/08/18 08:35 Lipase 30 U/L 8-78 Erythrocyte sedimentation rate by hussein gren method - 05/08/18 08:35 Erythrocyte sedimentation rate by westergren method 7 mm 0- 30 Coronavirus SARS-CoV-2 SO 2018 - 0 07:50 Coronavirus Ab [Units/volume] in Serum Negative Negative Encounters ACCT No. Visit Date/Time Discharge Status Pt. Type Provider Facility Loc./Unit Complaint [id number] 02/03/2020 13:20:00 02/03/2020 23:59: 59 [facility] [id number] 02/06/2020 05:37:00 020 11:36:00 DIS Outpatient JESSI HAGEN DO [facility] PREOP COLONOSCOPY [id number] 09/04/2019 09:48:00 020 12:03:00 DIS Outpatient CARIN BURNETT DO [facility] SDC SEVERE IRON DEFICIENCY [id number] 07/03/2018 07:52:00 018 10:55:00 DIS Outpatient JESSI HAGEN DO [facility] ENDO DYSPHAGIA/REFLUX [id number] 06/26/2018 06:35:00 018 13:59:00 DIS Outpatient JESSI HAGEN DO [facility] PREOP EGD [id number] 05/08/2018 08:22:00 018 23:59:59 CLS Outpatient CARIN BURNETT DO [facility] RAD UNSPECIFIED ABD PAIN R1 0.9 [id number] 09/19/2017 08:38:00 018 23:59:59 CLS Outpatient CARIN BURNETT DO [facility] RAD CHRONIC MAXILLARY SINUS ITIS [id number] 11/29/2016 06:31:00 017 09:47:00 DIS Outpatient JESSI HAGEN DO [facility] ENDO HISTORY OF POLYPS [id number] 11/24/2016 05:38:00 017 23:59:59 CLS Outpatient JESSI HAGEN DO [facility] PREOP HISTORY OF POLYPS [id number] 06/03/2014 20:50:00 014 06:00:00 DIS Outpatient RADHA ARMENDARIZ APRN [facility] SLEEP SNORING,DAYTIME SLEEPI NESS [id number] 02/11/2020 13:30:00 P EN Preadmit JESSI HAGEN DO [facility] ENDO SCREENING/HX POLYPS [id number] 05/17/2013 12:05:00 3 13:00:00 DIS Emergency
[2020-02-11] MEDS ORDERED: proPOfol 200 MG/20 ML (DIPRIVAN) VIAL IV ONE (09:37)
[2020-02-11] MEDS ORDERED: MIDAZOLAM 2 MG/2 ML (VERSED) VIAL ONE (09:37)
--- NOTE | 2020-02-11 09:40 | Progress Note-Pre Operative ---
Pre-Operative Progress Note H&P Reviewed The H&P was reviewed, patient examined and no changes noted. Date Seen by Provider: Feb 11, 2020 Time Seen by Provider: :40 Date H&P Reviewed: Feb 11, 2020 Time H&P Reviewed: 09:40 Pre-Operative Diagnosis: hx polyps JESSI HAGEN DO Feb 11, 2020 09:40
--- NOTE | 2020-02-11 10:20 | Progress Note-Post Operative ---
Post-Operative Progess Note Surgeon (s)/Lubricating Specialist (s) Surgeon JESSI HAGEN DO Lubricating Specialist: na Pre-Operative Diagnosis hx polyps Post-Operative Diagnosis colon polyps diverticulosis Procedure & Operative Findings Date of Procedure 02/11/20 Procedure Performed/Findings colonoscopy c hot bx polypectomy x 4 Anesthesia Type per manager analysis Estimated Blood Loss Estimated blood loss (mL): none Specimens/Packing Specimens Removed ascending, transverse x 2, sigmoid polyp JESSI HAGEN DO Feb 11, 2020 10:20
--- NOTE | 2020-02-11 10:21 | Discharge Inst-Simple/Standard ---
Discharge Inst-Standard Patient Instructions/Follow Up Plan of Care/Instructions/FU: 2 weeks kal Activity as Tolerated: Yes Discharge Diet: Regular Diet JESSI HAGEN DO Feb 11, 2020 10:21
--- NOTE | 2020-02-11 11:04 | Anesthesia-General Post-Op ---
MAC Patient Condition Mental Status/LOC: Same as Preop Cardiovascular: Satisfactory Nausea/Vomiting: Absent Respiratory: Satisfactory Pain: Controlled Complications: Absent Post Op Complications Complications None Follow Up Care/Instructions Patient Instructions None needed. Anesthesiology Discharge Order Discharge Order Patient is doing well, no complaints, stable vital signs, no apparent adverse anesthesia problems. AMANDA HOLGUIN DO Feb 11, 2020 11:04
--- NOTE | 2020-02-11 15:28 | OPERATIVE REPORT ---
DATE OF SERVICE: 02/11/2020 PREOPERATIVE DIAGNOSIS: History of colon polyps. POSTOPERATIVE DIAGNOSES: Colon polyps and diverticulosis. PROCEDURE: Colonoscopy with hot biopsy polypectomy x4 SURGEON: Jessi Richardson DO ANESTHESIA: Per DICTATING TRANSCRIBING MACHINE SERVICER. ESTIMATED BLOOD LOSS: None. COMPLICATIONS: None. INDICATIONS: The patient is a 69-year-old male with history of colon polyps. He understands risks and benefits of procedure, wishes to proceed with procedure. Consent was signed in the chart. DESCRIPTION OF PROCEDURE: The patient was taken to the endoscopy suite, placed in left lateral recumbent position. Timeout was performed. Digital rectal exam was performed. No palpable polyps, masses or ulcerations. Scope was inserted in the rectum, advanced all the way to cecum with minimal difficulty. Prep was adequate. Scope was then slowly retracted back. No polyps, masses or ulcerations within the cecum. A small polyp in the ascending colon, which hot biopsy polypectomy was performed. Scope was then continuously retracted back and in the transverse colon were 2 small polyps were present, which hot biopsy polypectomy was performed. Scope was then continuously retracted back. No other polyps, masses or ulcerations within the remainder of the transverse, descending colon, and in the sigmoid another small polyp was present, hot biopsy polypectomy was performed. A minimal amount of diverticulosis present. Scope was continued to be retracted back into the rectum, where it was also retroflexed noting no other pathology. Scope was then returned to its normal position, slowly withdrawn until completely removed. The patient tolerated procedure well without any complications. He was taken to recovery room in stable condition. RECOMMENDATIONS: The patient will need repeat colonoscopy in 3 years. Any issues before that be seen at that time. Recommend high fiber diet. The patient will follow up in 2 weeks in the office. Job ID: [id number] DocumentID: [id number] Dictated Date: 02/11/2020 10:27:35 Audiology Director Date: 02/11/2020 15:27:53 Dictated By: JESSI RICHARDSON DO
== END 2020-02-11 11:05 | disposition home or self-care (01) ==
LOC: ENDO 08:49
PROVIDERS: ATTEND Surgery
DX: Z12.11 Encounter for screening for malignant neoplasm of colon (principal); K63.5 Polyp of colon; D12.2 Benign neoplasm of ascending colon; D12.3 Benign neoplasm of transverse colon; D12.5 Benign neoplasm of sigmoid colon; K57.30 Diverticulosis of large intestine without perforation or abscess without bleeding; K21.9 Gastro-esophageal reflux disease without esophagitis; E78.5 Hyperlipidemia, unspecified; R56.9 Unspecified convulsions; F17.200 Nicotine dependence, unspecified, uncomplicated; G47.33 Obstructive sleep apnea (adult) (pediatric); J44.9 Chronic obstructive pulmonary disease, unspecified; Z86.010 Personal history of colon polyps; Z88.0 Allergy status to penicillin; Z88.2 Allergy status to sulfonamides; Z79.899 Other long term (current) drug therapy
CPT/HCPCS: 88305

== ENCOUNTER → 2021-03-08 | Outpatient (CLI) | payer MEDICARE, OTHER ==
--- NOTE | 2021-03-08 16:56 | Diagnostic Imaging Report ---
INDICATION: Right foot pain. COMPARISON: None. FINDINGS: Three views of the right foot demonstrate no acute fracture or dislocation. There are no focal osseous lesions. There is no soft tissue swelling. Joint spaces are well maintained. No radiopaque foreign bodies are seen. IMPRESSION: No acute fractures or dislocations of the right foot. Dictated by: Dictated on workstation # [id number]
== END ==
LOC: RAD 14:02
PROVIDERS: ATTEND Internal Medicine
DX: M79.671 Pain in right foot (principal)
CPT/HCPCS: 73630

== ENCOUNTER 2023-02-22 06:22 | Outpatient (CLI) | payer MEDICARE, OTHER ==
[~2023-02-22] VITALS: Ht 170.2 cm; Wt 77.6 kg
[2023-02-24] MEDS ORDERED: FAMO20TA3 PO (08:38)
[2023-02-24] MEDS ORDERED: FERR-84 PO (08:38)
[2023-02-24] MEDS ORDERED: BETA15CR4 TP (08:38)
== END 2023-02-24 08:47 | disposition home or self-care (01) ==
LOC: PREOP 06:22
PROVIDERS: ATTEND Surgery
DX: Z01.818 Encounter for other preprocedural examination (principal)